=== PATIENT | female | born 1990 | race Caucasian/White ===

== ENCOUNTER 2018-07-05 12:07 | Emergency (ER) | payer MEDICAID ==
[~2018-07-05] VITALS: Ht 175.3 cm; Wt 59.0 kg
[2018-07-05 12:13] VITALS: BP 115/66
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
== END 2018-07-05 13:07 | disposition home or self-care (01) ==
LOC: ER 12:11
DX: S02.2XXA Fracture of nasal bones, initial encounter for closed fracture (principal); Y08.89XA Assault by other specified means, initial encounter; Y93.89 Activity, other specified; Y92.89 Other specified places as the place of occurrence of the external cause; Y99.8 Other external cause status
CPT/HCPCS: 70160-TC

== ENCOUNTER 2018-08-30 06:07 | Emergency (ER) | payer MEDICAID ==
[~2018-08-30] VITALS: Ht 175.3 cm; Wt 59.0 kg
--- NOTE | 2018-08-30 06:10 | NUR ---
Noted hesitation davis to [facility]. dhara solis made aware.
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
--- NOTE | 2018-08-30 06:14 | NUR ---
er md at bedside to eval pt with orders recieved. will carry out orders.
[2018-08-30] MEDS ORDERED: IV NS 0.9% 1,000 ML BAG IV ONE (06:30)
--- NOTE | 2018-08-30 06:33 | NUR ---
pt transported to radiology for ct head.
[2018-08-30 06:43] LABS: BASOPHILS # (AUTO) 0.1 /CMM (0.0-0.2); BASOPHILS % (AUTO) 1.3 % (0.0-2.0); EOSINOPHILS % (AUTO) 2.8 % (0.0-6.0); HEMATOCRIT 39 % (33-45); LYMPHOCYTES # (AUTO) 2.9 /CMM (0.8-4.8); LYMPHOCYTES % (AUTO) 48.5 % (20.0-44.0); MEAN CORPUSCULAR HGB CONC 33 g/dl (31.0-36.0); MEAN CORPUSCULAR VOLUME 91 fL (82-100); MONOCYTES # (AUTO) 0.3 /CMM (0.1-1.30); MONOCYTES % (AUTO) 4.4 % (2.0-12.0); NEUTROPHILS # (AUTO) 2.6 /CMM (1.8-8.9); PLATELET COUNT (AUTO) 276 /CMM (150-450); RED BLOOD CELL COUNT(AUTO) 4.28 MIL/uL (4.0-5.2); WHITE BLOOD COUNT (AUTO) 6.1 K/uL (4.3-11.0)
--- NOTE | 2018-08-30 06:43 | NUR ---
pt back from radiology. pending ct head result.
[2018-08-30 06:50] LABS: CALCIUM, SERUM 8.4 mg/dL (8.5-10.1); CREATININE 0.8 mg/dL (0.6-1.3); POTASSIUM 3.9 mmol/L (3.5-5.1)
--- NOTE | 2018-08-30 06:50 | NUR ---
Female STEPH Paulino at bedside to do I&O cath for urine sample.
--- NOTE | 2018-08-30 06:55 | NUR ---
urine sample collected and sent to lab.
[2018-08-30 07:01] LABS: ALBUMIN 3.4 g/dL (3.4-5.0); BILIRUBIN,TOTAL 0.1 mg/dL (0.2-1.0); SALICYLATE 1.5 mg/dL (2.8-20.0); TOTAL PROTEIN, SERUM 6.6 g/dL (6.4-8.2)
--- NOTE | 2018-08-30 07:34 | NUR ---
REPORT GIVEN TO AM SHIFT RN MICHAEL.
[2018-08-30] MEDS ORDERED: NALOXONE HCL 0.4 MG/ML AMPUL ONE (07:49)
--- NOTE | 2018-08-30 07:57 | NUR ---
RECEIVED REPORT FROM RECORDS ASSOCIATE FOR [employer], PT IS AAOX0 RESPONDS TO PAINFUL STIMULI, V/S STABLE, NARCAN GIVEN IVP NO RESPONSE, WILL CONTINUE TO MONITOR.
[2018-08-30] MEDS ORDERED: NALOXONE HCL 0.4 MG/ML AMPUL IV ONE (08:00)
--- NOTE | 2018-08-30 08:38 | NUR ---
[facility].
--- NOTE | 2018-08-30 12:20 | NUR ---
PT FOUND ON FLOOR TRYING TO PUT BOTH LEGS THROUGH ONE PANT LEG. IV AND MONITOR ATTACHMENTS PULLED OUT. ASSISTED PT BACK TO BED WITH CLEAN GOWN AND BLANKET. PRIMARY NURSE NOTIFIED.
--- NOTE | 2018-08-30 15:58 | NUR ---
IV removed. Catheter intact and site benign. Pressure and 4x4 applied to site. No bleeding noted. Patient discharged to home in stable condition. Written and verbal after care instructions given. Patient verbalizes understanding of instruction.
--- NOTE | 2018-08-30 16:06 | NUR ---
sPatient discharged to home in stable condition. Written and verbal after care instructions given. Patient verbalizes understanding of instruction.
[2018-08-30 16:07] VITALS: BP 108/72
== END 2018-08-30 16:07 | disposition home or self-care (01) ==
LOC: ER 06:09
DX: T51.8X1A Toxic effect of other alcohols, accidental (unintentional), initial encounter (principal); T50.901A Poisoning by unspecified drugs, medicaments and biological substances, accidental (unintentional), initial encounter; R41.82 Altered mental status, unspecified; F13.10 Sedative, hypnotic or anxiolytic abuse, uncomplicated; F10.10 Alcohol abuse, uncomplicated; F12.10 Cannabis abuse, uncomplicated; Y90.6 Blood alcohol level of 120-199 mg/100 ml; Y92.89 Other specified places as the place of occurrence of the external cause
CPT/HCPCS: 36415; 70450; 71045; 80048; 80076; 80305; 80307; 80329; 82550; 85025; 96361; 96374; 99284; G0480; J2310; J7030

== ENCOUNTER 2018-09-16 22:45 | Emergency (ER) | payer MEDICAID ==
[~2018-09-16] VITALS: Ht 175.3 cm; Wt 61.2 kg
--- NOTE | 2018-09-16 23:02 | NUR ---
presdentedb to the er w/ c/o CP. woke up this morning for back pain and accompanied w/ CP since 1800. -n/v. +SOB. - pmh or sx. placed on a monitor. vss. ECG done. will cont to monitor ,
[2018-09-16 23:52] LABS: BASOPHILS % (AUTO) 0.6 % (0.0-2.0); EOSINOPHILS % (AUTO) 3.3 % (0.0-6.0); HEMATOCRIT 39 % (33-45); HEMOGLOBIN 13.3 g/dL (11.5-14.8); LYMPHOCYTES # (AUTO) 2.9 /CMM (0.8-4.8); LYMPHOCYTES % (AUTO) 37.2 % (20.0-44.0); MEAN CORPUSCULAR HGB CONC 34 g/dl (31.0-36.0); MEAN CORPUSCULAR VOLUME 91 fL (82-100); MONOCYTES # (AUTO) 0.6 /CMM (0.1-1.30); MONOCYTES % (AUTO) 8.3 % (2.0-12.0); NEUTROPHILS # (AUTO) 3.9 /CMM (1.8-8.9); NEUTROPHILS % (AUTO) 50.6 % (43.0-81.0); PLATELET COUNT (AUTO) 330 /CMM (150-450); RED BLOOD CELL COUNT(AUTO) 4.35 MIL/uL (4.0-5.2); WHITE BLOOD COUNT (AUTO) 7.7 K/uL (4.3-11.0)
[2018-09-16 23:57] LABS: CALCIUM, SERUM 10.1 mg/dL (8.5-10.1); CARBON DIOXIDE 32 mmol/L (21-32); CHLORIDE 103 mmol/L (98-107); CREATININE 0.9 mg/dL (0.6-1.3); GLUCOSE 102 mg/dL (74-106); POTASSIUM 3.5 mmol/L (3.5-5.1); SODIUM SERUM 141 mmol/L (136-145); UREA NITROGEN, BLOOD 13 mg/dL (7-18)
[2018-09-17] MEDS ORDERED: IV NS 0.9% 1,000 ML BAG IV ONE
[2018-09-17 00:03] LABS: ALANINE AMINOTRANSFERASE 39 U/L (12-78); ALBUMIN 3.6 g/dL (3.4-5.0); ALKALINE PHOSPHATASE 43 U/L (46-116); ASPARTATE AMINOTRANSFERASE 18 U/L (15-37); BILIRUBIN,TOTAL 0.1 mg/dL (0.2-1.0)
[2018-09-17] MEDS ORDERED: KETOROLAC TROMETHAMINE INJ 30 MG/ML VIAL ONE (00:30)
[2018-09-17] MEDS ORDERED: KETOROLAC TROMETHAMINE INJ 30 MG/ML VIAL IV ONE (00:30)
[2018-09-17 01:05] LABS: ALBUMIN 3.5 g/dL (3.4-5.0); BILIRUBIN,DIRECT 0.1 mg/dL (0.0-0.2); BILIRUBIN,TOTAL 0.1 mg/dL (0.2-1.0)
--- NOTE | 2018-09-17 01:52 | NUR ---
Patient is resting comfortably in bed with eyes closed. Easily aroused. VSS
[2018-09-17 02:22] VITALS: BP 118/74
--- NOTE | 2018-09-17 02:40 | NUR ---
PT VERY ANXIOUS AND AGITATED, COMBATIVE W/ AGRESSIVE BEHAVIOR. PT IS CLEAR TO D/C HOME PER MD. VSS. IV LINE REMOVED AND PRESSURE APPLIED ON THE SITE W/ NO BLEEDING. PT REFUSED D/C AND AFTER CARE INSTRUCTIONS PAPERS AND REFUSED TO SIGN THE D/C PAPERS.
== END 2018-09-17 02:40 | disposition home or self-care (01) ==
LOC: ER 22:47
DX: R10.84 Generalized abdominal pain (principal); R07.89 Other chest pain; M54.9 Dorsalgia, unspecified; F10.10 Alcohol abuse, uncomplicated; Y90.9 Presence of alcohol in blood, level not specified; Z60.2 Problems related to living alone
CPT/HCPCS: 36415; 71045; 80048; 80076 ×2; 83690; 84484; 84702; 85025; 93005; 96374; 99284; J1885; J7030